=== PATIENT | male | born 1985 | race African-American/Black ===

== ENCOUNTER 2020-06-27 10:27 | Emergency (ER) | payer MEDICAID ==
[~2020-06-27] VITALS: Ht 182.9 cm; Wt 86.0 kg
[2020-06-27 10:38] VITALS: BP 112/77
[2020-06-27] MEDS ORDERED: HALOPERIDOL LACTATE 5MG/ML VIAL IM ONE (11:15)
[2020-06-27] MEDS ORDERED: SODIUM CHLORIDE 0.9% 1,000 ML IV ONE (11:15)
== END 2020-06-27 13:32 | disposition home or self-care (01) ==
LOC: ER 10:44
DX: F12.188 Cannabis abuse with other cannabis-induced disorder (principal)
CPT/HCPCS: 93005; 96372; 99283; J1630; J7030